=== PATIENT | male | born 1950 ===

== ENCOUNTER 2021-12-19 06:32 | Day surgery (SDC) | payer OTHER ==
[~2021-12-19] VITALS: Ht 172.7 cm; Wt 103.4 kg
[~2021-12-19 06:32] MED LIST: ATIVAN2 M1; CARDURA; HUMULIN N100 UNIT/2; MOBIC; NEURONTIN; PLAVIX75 MG; ZANAFLEX2 M1; ZESTRIL10 M1; ZOCOR20 MG; [UNRECOGNIZED DRUG - OTHER]
[2021-12-19] MEDS ORDERED: RECTICARE30 GM TOP (11:31)
[2021-12-19] MEDS ORDERED: PERCOCET 5-3251 EACH PO (11:31)
== END 2021-12-19 16:45 | disposition home or self-care (01) ==
LOC: CIR.AMB 06:32
PROVIDERS: ATTEND Surgery
DX: K62.6 Ulcer of anus and rectum (principal); Z20.822 Contact with and (suspected) exposure to COVID-19; I10 Essential (primary) hypertension; E11.9 Type 2 diabetes mellitus without complications; E78.5 Hyperlipidemia, unspecified; Z79.4 Long term (current) use of insulin